=== PATIENT | male | born 1975 | race Two or more races ===

== ENCOUNTER 2019-12-29 18:58 | Emergency (ER) | payer OTHER ==
[~2019-12-29] VITALS: Ht 170.2 cm; Wt 76.3 kg
[2019-12-29 19:22] VITALS: BP 132/85
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
[2019-12-29] MEDS ORDERED: IBUP-1007 PO (21:24)
[2019-12-29] MEDS ORDERED: HYDR-3164 PO (21:24)
[2019-12-29] MEDS ORDERED: ORPH100T PO (21:24)
== END 2019-12-29 21:56 | disposition home or self-care (01) ==
LOC: ER 18:58
DX: S40.021A Contusion of right upper arm, initial encounter (principal); S60.032A Contusion of left middle finger without damage to nail, initial encounter; M25.511 Pain in right shoulder; M25.531 Pain in right wrist; E78.00 Pure hypercholesterolemia, unspecified; V43.52XA Car driver injured in collision with other type car in traffic accident, initial encounter; Y93.89 Activity, other specified; Y92.488 Other paved roadways as the place of occurrence of the external cause; Y99.8 Other external cause status
CPT/HCPCS: 73030; 73060; 73090; 73110; 73130; 99284